=== PATIENT | male | born 1995 | race African-American/Black ===

== ENCOUNTER 2021-01-07 16:45 | Inpatient (IN) | payer MEDICAID, MEDICARE ==
[~2021-01-07] VITALS: Ht 170.2 cm; Wt 62.6 kg
[2021-01-07 18:52] LABS: BASOPHILS % 0.6 % (0.0-2.0); HEMATOCRIT. 43.6 % (42.0-52.0); HEMOGLOBIN. 14.1 g/dL (14.0-18.0); LYMPHOCYTES % 35.1 % (20.0-50.0); MEAN CORPUSCULAR HEMOGLOBIN 28.6 pg (28.0-32.0); MEAN CORPUSCULAR VOLUME 88.1 fL (80.0-94.0); MONOCYTES % 6.8 % (2.0-8.0); NEUTROPHILS % 53.5 % (40.0-76.0); PLATELET 230 x1000/uL (130-400); RED BLOOD CELL COUNT 4.95 mill/uL (4.7-6.1)
[2021-01-07 18:57] LABS: CHLORIDE 109 mEq/L (98-107)
[2021-01-07 19:01] LABS: ETHANOL BLOOD < 10 mg/dL
[2021-01-08 13:12] LABS: CLARITY URINE CLEAR (CLEAR); COLOR URINE YELLOW (YELLOW); KETONES URINE 3+ (NEGATIVE); LEUKOCYTE ESTERASE URINE 2+ (NEGATIVE); NITRITE URINE NEGATIVE (NEGATIVE); OCCULT BLOOD URINE NEGATIVE (NEGATIVE); PROTEIN URINE NEGATIVE (NEGATIVE); SPECIFIC GRAVITY URINE 1.026 (1.005-1.030)
[2021-01-08 13:58] LABS: *AMPHETAMINES SCREEN URINE NEGATIVE (NEGATIVE); *BARBITURATES SCREEN URINE NEGATIVE (NEGATIVE); *BENZODIAZEPINES SCREEN URINE NEGATIVE (NEGATIVE); *COCAINE SCREEN URINE NEGATIVE (NEGATIVE)
[2021-01-08 13:59] LABS: CANNABINOID URINE SCREEN NEGATIVE (NEGATIVE); METHADONE URINE SCREEN NEGATIVE (NEGATIVE); OPIATES URINE SCREEN NEGATIVE (NEGATIVE); PHENCYCLIDINE URINE SCREEN NEGATIVE (NEGATIVE)
[2021-01-13] MEDS ORDERED: AMOXICILLIN 500 MG CAPSULE PO ONE (09:00)
[2021-01-13] MEDS: AMOXICILLIN 500 MG CAPSULE PO SCH (17:04)
[2021-01-14] MEDS: AMOXICILLIN 500 MG CAPSULE PO SCH ×2 (07:57→14:00)
[2021-01-14 13:20] LABS: BASOPHILS % 0.8 % (0.0-2.0); EOSINOPHILS % 6.2 % (0.0-5.0); HEMATOCRIT. 44.8 % (42.0-52.0); HEMOGLOBIN. 14.6 g/dL (14.0-18.0); LYMPHOCYTES % 39.1 % (20.0-50.0); MEAN CORPUSCULAR HEMOGLOBIN 28.9 pg (28.0-32.0); MEAN CORPUSCULAR VOLUME 88.7 fL (80.0-94.0); MEAN PLATELET VOLUME 7.7 fl (7.4-10.4); MONOCYTES % 11.5 % (2.0-8.0); NEUTROPHILS % 42.4 % (40.0-76.0); PLATELET 213 x1000/uL (130-400); RED BLOOD CELL COUNT 5.05 mill/uL (4.7-6.1); RED CELL DISTRIBUTION WIDTH 12.8 % (11.6-14.6)
[2021-01-14 13:26] LABS: CHLORIDE 106 mEq/L (98-107)
[2021-01-14 16:00] VITALS: BP 101/60
[2021-01-14 18:45] VITALS: BP 101/60
[2021-01-14 20:00] VITALS: BP 103/70
[2021-01-15] VITALS: BP 105/64
[2021-01-15 04:00] VITALS: BP 116/80
[2021-01-15 08:00] VITALS: BP 111/61
[2021-01-15 12:00] VITALS: BP 103/60
[2021-01-15] MEDS ORDERED: ACETAMINOPHEN 325MG TABLET PO PRN (13:45)
[2021-01-15] MEDS ORDERED: ACETAMINOPHEN 650MG SUPP PR PRN (13:45)
[2021-01-15] MEDS ORDERED: IPRATROPIUM/ALBUTEROL 0.5-3(2.5)MG/3ML NEB HHN PRN (13:45)
[2021-01-15] MEDS ORDERED: ONDANSETRON HCL 4MG TABLET PO PRN (13:45)
[2021-01-15] MEDS ORDERED: HYDROCODONE/ACETAMINOPHEN 5/325MG TABLET PO PRN (13:45)
[2021-01-15] MEDS ORDERED: NALOXONE HCL 0.4MG/ML VIAL IV PRN (14:00)
[2021-01-15 16:02] VITALS: BP 107/65
[2021-01-15 20:00] VITALS: BP 106/69
[2021-01-16] VITALS: BP 103/70
[2021-01-16 04:00] VITALS: BP 108/62
[2021-01-16 08:00] VITALS: BP 97/67
[2021-01-16 12:00] VITALS: BP 105/69
[2021-01-16 16:00] VITALS: BP 106/68
[2021-01-16 20:00] VITALS: BP 100/51
[2021-01-17] VITALS: BP 93/55
[2021-01-17 04:00] VITALS: BP 119/64
[2021-01-17 08:00] VITALS: BP 90/50
[2021-01-17 12:00] VITALS: BP 94/46
[2021-01-17 16:00] VITALS: BP 104/58
[2021-01-17 20:00] VITALS: BP 96/56
[2021-01-18] VITALS: BP 97/48
[2021-01-18 04:00] VITALS: BP 94/58
[2021-01-18] MEDS: BISACODYL 10MG SUPP PR PRN (11:05)
[2021-01-18 12:00] VITALS: BP 117/68
[2021-01-18 16:00] VITALS: BP 111/71
[2021-01-18 20:00] VITALS: BP 104/58
[2021-01-19] VITALS: BP 106/58
[2021-01-19 04:00] VITALS: BP_SYST 100; BP_SYST 82; BP_DIAS 43; BP_DIAS 57
[2021-01-19 06:32] LABS: HEMATOCRIT 39.9 % (42.0-52.0); HEMOGLOBIN 13.2 g/dL (14.0-18.0); MEAN CORPUSCULAR HEMOGLOBIN 29.4 pg (28.0-32.0); MEAN CORPUSCULAR VOLUME 88.6 fL (80.0-94.0); PLATELET 223 x1000/uL (130-400); RED CELL DISTRIBUTION WIDTH 12.6 % (11.6-14.6)
[2021-01-19 06:41] LABS: CHLORIDE 107 mEq/L (98-107)
[2021-01-19 08:00] VITALS: BP 111/73
[2021-01-19 12:00] VITALS: BP 103/68
[2021-01-19 16:00] VITALS: BP 100/58
[2021-01-19 20:00] VITALS: BP 90/52
[2021-01-20] VITALS: BP 98/57
[2021-01-20 04:00] VITALS: BP 99/49
[2021-01-20 08:00] VITALS: BP 100/56
[2021-01-20 12:00] VITALS: BP 100/56
[2021-01-20 16:00] VITALS: BP 100/56
[2021-01-20 20:00] VITALS: BP 103/53
[2021-01-21] VITALS: BP 103/58
[2021-01-21 04:00] VITALS: BP 133/73
[2021-01-21 08:00] VITALS: BP 90/50
[2021-01-21 12:00] VITALS: BP 110/62
[2021-01-21 16:00] VITALS: BP 103/63
[2021-01-21 20:00] VITALS: BP 106/64
[2021-01-22] VITALS: BP 108/68
[2021-01-22 04:00] VITALS: BP 100/59
[2021-01-22 08:00] VITALS: BP 107/59
[2021-01-22 12:00] VITALS: BP 100/50
[2021-01-22 16:00] VITALS: BP 106/69
[2021-01-22 20:00] VITALS: BP 87/50
[2021-01-23] VITALS: BP 99/69
[2021-01-23 04:00] VITALS: BP 88/40
[2021-01-23 08:00] VITALS: BP 81/45
[2021-01-23 12:00] VITALS: BP 102/56
[2021-01-23 16:00] VITALS: BP 100/59
[2021-01-23 20:00] VITALS: BP 95/38
[2021-01-24] VITALS: BP 108/70
[2021-01-24 04:00] VITALS: BP 94/54
[2021-01-24 08:00] VITALS: BP 117/63
[2021-01-24 12:00] VITALS: BP 102/55
[2021-01-24 16:00] VITALS: BP 103/61
[2021-01-24 20:00] VITALS: BP 100/61
[2021-01-25] VITALS: BP 104/61
[2021-01-25 04:00] VITALS: BP 95/60
[2021-01-25 08:00] VITALS: BP 105/56
[2021-01-25 12:00] VITALS: BP 99/56
[2021-01-25 16:00] VITALS: BP 106/57
[2021-01-25 20:00] VITALS: BP 111/66
[2021-01-25 22:01] LABS: BASOPHILS % 0.9 % (0.0-2.0); EOSINOPHILS % 3.5 % (0.0-5.0); HEMATOCRIT. 40.8 % (42.0-52.0); HEMOGLOBIN. 13.4 g/dL (14.0-18.0); LYMPHOCYTES % 31.3 % (20.0-50.0); MEAN CORPUSCULAR VOLUME 88.4 fL (80.0-94.0); MEAN PLATELET VOLUME 7.7 fl (7.4-10.4); MONOCYTES % 8.3 % (2.0-8.0); PLATELET 260 x1000/uL (130-400); RED BLOOD CELL COUNT 4.61 mill/uL (4.7-6.1); RED CELL DISTRIBUTION WIDTH 12.8 % (11.6-14.6)
[2021-01-25 22:06] LABS: CHLORIDE 109 mEq/L (98-107)
[2021-01-26] VITALS: BP 110/60
[2021-01-26 04:00] VITALS: BP 106/68
[2021-01-26 08:00] VITALS: BP 102/59
[2021-01-26 12:00] VITALS: BP 102/65
[2021-01-26 16:00] VITALS: BP 108/59
[2021-01-26 20:00] VITALS: BP 106/73
[2021-01-27] VITALS: BP 103/81
[2021-01-27 04:00] VITALS: BP_SYST 111; BP_SYST 144; BP_DIAS 60; BP_DIAS 72
[2021-01-27 08:00] VITALS: BP 85/53
[2021-01-27 12:00] VITALS: BP 95/51
[2021-01-27 16:00] VITALS: BP 101/65
[2021-01-27 20:00] VITALS: BP 111/76
[2021-01-28] VITALS: BP 106/71
[2021-01-28 04:00] VITALS: BP 104/83
[2021-01-28 08:00] VITALS: BP 109/83
[2021-01-28 12:00] VITALS: BP 94/56
[2021-01-28 16:00] VITALS: BP 110/70
[2021-01-28 20:00] VITALS: BP 110/69
[2021-01-29] VITALS: BP 110/76
[2021-01-29 04:00] VITALS: BP 92/52
[2021-01-29 08:00] VITALS: BP 118/78
[2021-01-29 12:00] VITALS: BP 103/66
[2021-01-29 16:00] VITALS: BP 99/60
[2021-01-29] MEDS: BISACODYL 10MG SUPP PR PRN (17:14)
[2021-01-29 20:00] VITALS: BP 99/65
[2021-01-30] VITALS: BP 118/76
[2021-01-30 04:00] VITALS: BP 93/57
[2021-01-30 08:00] VITALS: BP 97/61
[2021-01-30 12:00] VITALS: BP 105/64
[2021-01-30 16:00] VITALS: BP 95/59
[2021-01-30 20:00] VITALS: BP_SYST 104; BP_SYST 133; BP_DIAS 53; BP_DIAS 58
[2021-01-31] VITALS: BP 101/65
[2021-01-31 04:00] VITALS: BP 111/65
[2021-01-31 08:00] VITALS: BP 100/69
[2021-01-31 12:00] VITALS: BP 103/53
[2021-01-31 16:00] VITALS: BP 102/65
[2021-01-31 20:00] VITALS: BP 100/61
[2021-02-01] VITALS: BP 97/52
[2021-02-01 04:00] VITALS: BP 88/50
[2021-02-01 08:00] VITALS: BP 113/72
[2021-02-01 12:00] VITALS: BP 104/63
[2021-02-01 16:00] VITALS: BP 100/57
[2021-02-01 20:00] VITALS: BP 97/59
[2021-02-02] VITALS: BP 105/69
[2021-02-02 04:00] VITALS: BP 99/58
[2021-02-02 08:00] VITALS: BP 99/56
[2021-02-02 12:00] VITALS: BP 95/54
[2021-02-02 16:00] VITALS: BP 98/61
[2021-02-02 20:00] VITALS: BP 98/62
[2021-02-03] VITALS: BP 91/55
[2021-02-03 04:00] VITALS: BP 97/64
[2021-02-03 08:00] VITALS: BP 100/61
[2021-02-03 12:00] VITALS: BP 97/52
[2021-02-03 16:00] VITALS: BP 108/53
[2021-02-03 20:00] VITALS: BP 131/71
[2021-02-04] VITALS: BP 121/57
[2021-02-04 04:00] VITALS: BP 90/55
[2021-02-04 12:00] VITALS: BP 96/43
[2021-02-04 16:00] VITALS: BP 98/57
[2021-02-04 20:00] VITALS: BP 98/62
[2021-02-05] VITALS: BP 86/55
[2021-02-05 04:00] VITALS: BP 102/62
[2021-02-05 08:00] VITALS: BP 86/50
[2021-02-05 12:00] VITALS: BP 90/61
== END 2021-02-05 15:40 | disposition left against medical advice (07) | DRG 71 ==
LOC: ER 16:45 → UNDOADMIN 01-10 12:01 → MICUSO 01-10 12:01 → 6EST 01-14 12:01 → EDBEDREQ 01-14 12:02 → EDBEDREQTM 01-14 12:02 → SUPCPDRO 01-14 12:53 → ENRESERV 01-14 15:15 → MICUSO 01-14 17:28 → 6EST 01-14 17:28
PROVIDERS: ADMIT Internal Medicine; ATTEND Internal Medicine
DX: G93.40 Encephalopathy, unspecified (principal); N39.0 Urinary tract infection, site not specified; E86.0 Dehydration; F20.9 Schizophrenia, unspecified; Z20.822 Contact with and (suspected) exposure to COVID-19; Z81.8 Family history of other mental and behavioral disorders; Z79.899 Other long term (current) drug therapy
CPT/HCPCS: 36415; 80048; 80053; 80320; 82140; 82962; 85025; 85027; 87426; 99285; G0480